=== PATIENT | female | born 1945 | race Caucasian/White ===

== ENCOUNTER 2024-08-22 14:04 | Outpatient (CLI) | payer MEDICARE, OTHER ==
--- NOTE | 2024-08-25 10:13 | CONSULTATION ---
DATE OF CONSULTATION: 08/22/2024 DICTATING PHYSICIAN: Stephanie Beckford M.S., [facility] MODIFIED BARIUM SWALLOW STUDY REPORT REFERRING PHYSICIAN: Jason Redding MD HISTORY OF PRESENT ILLNESS: The patient is an 79-year-old female and consents to this evaluation. The patient's daughter was present for this evaluation. In history obtained from the patient, the patient's daughter and medical records, the patient has been having symptoms of dysphagia including coughing with both solids and liquids almost every time that she eats and drinks. The patient has had a chronic cough since she was a child, but the patient's daughter has noted that over the past couple of years that the cough has gotten worse and seems to occur more at mealtimes. She also notes that the patient has been clearing her throat throughout the day for the past couple of years as well. The patient has a diagnosis of Alzheimer's disease as well as COPD. She notes that she is more sensitive to foods that are spicy or have extra seasoning on them. CURRENT DIET: In terms of caffeine, the patient has 1 cup of coffee daily and 2 cups of tea. She does not utilize tobacco products. She does not consume alcohol. In terms of chocolate, she has very frequently in the form of chocolate ice cream and cookies. In terms of dairy products, the patient has at least 3 times a week in the form of ice cream, milk as a beverage or milk in her coffee. She is on a regular textured and liquid diet with no food avoidances at this time. MEDICATIONS: Albuterol 90 mcg/inhalation aerosol, one inhalation every 4 hours p.r.n., Allertec, Latanoprost ophthalmic 0.005% solution, one drop Ophth daily, pantoprazole 20 mg oral delayed release tablet, one tablet once daily orally in the morning, sertraline 50 mg one tablet p.o. daily. PARAMETERS: The patient is seated in a lateral 90-degree view and administered the usual protocol of thin and nectar thick liquids, puree, and solid consistencies as well as self-regulated boluses of thin liquids from a cup. RESULTS: In the stage of the swallow, oral transit is characterized by mildly reduced lingual strength and mild to moderately reduced tongue-based retraction. There is a mild oral residue on the tongue base following the initial swallow of boluses. The patient did not initiate secondary swallows when they were needed to clear the bolus from the oral cavity. In the pharyngeal stage of the swallow, swallow initiation was delayed with nectar thick liquids residing at the level of the vallecula and thin liquids residing at the level of the piriforms before a swallow was initiated, which indicated deficit with the cranial nerve 9 for triggering the initiation of the swallow reflex. Elevation of the hyothyroid complex was accomplished with full range of motion and PES opening was within functional limits. Anterior movement of the posterior pharyngeal wall is observed. There is a mild pharyngeal residue at the level of the vallecula for puree and solid consistencies and a mild to moderate pharyngeal residue at the level of the vallecula and the piriforms for the liquid boluses. In terms of airway safety, there was no penetration or aspiration noted for any of the bolus sizes or consistencies, but it should be noted that the patient did have 2 coughing episodes immediately after she swallowed a bolus and upon careful review of those 2 episodes, there was no entrance of the bolus into the airway. ANTERIOR, POSTERIOR VIEW: In AP plane, the bolus split symmetrically between the piriform sinuses and there was proximal movement of the bolus to the level of the mid sternum. 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 DIAGNOSES: R13.12 dysphagia, oropharyngeal phase; R13.14 dysphagia, pharyngoesophageal phase; G30.9 Alzheimer's disease. PATIENT EDUCATION: Immediately following modified barium swallow study, the patient and her daughter were able to view the results. The patient and daughter were able to see how the current status of the oral motor and swallowing mechanism decreases her ability to swallow normally. The patient and daughter were educated on recommendation to take smaller bites and sips and to have extra secondary swallows when finishing up a meal to ensure that there was complete bolus clearance from the oral and pharyngeal cavities. The patient and daughter were also educated on a recommendation for speech therapy to strengthen the muscles involved in swallowing and indicated that they would think about it at this time. RECOMMENDATIONS: * It is recommended that the patient utilize swallowing strategies such as limiting distractions, smaller bites and sips, and voluntary secondary swallows. * It is recommended that the patient receive swallowing therapy one time weekly for 12 weeks to improve the strength and range of motion of the oral motor and swallowing musculature to ensure airway safety protection and prevent aspiration. The patient and daughter are going to think about it at this time and call back if they decide to pursue following therapy. LONG-TERM GOALS: The patient will maintain adequate hydration/nutrition with optimum safety and efficiency of swallow function on p.o. intake without overt signs and symptoms of aspiration for the highest possible diet level. PROGNOSIS: Prognosis for this patient is fair based upon family support and level of queuing needed to implement the swallowing strategies. FUNCTIONAL ORAL INTAKE: The FOIS was administered to establish and document a change in the functional eating activities of this patient over time. This is a 7-point scale with 1 indicating no oral intake and totally tube dependent and 7 indicating total oral intake with no restrictions. This patient received a 6, which indicates she has a total oral diet with multiple consistencies without special preparation, but with specific food limitations and precautions. These limitations and precautions being foods that could aggravate the proximal movement of the boluses that were observed in the AP view. G-CODE: [id number]. Thank you very much for asking me to participate in the care of this kind patient. Should you have any questions regarding this evaluation or recommendation, please do not hesitate to contact me at [phone]. During this examination, 4.01 minutes of fluoroscopy time and 15.72 CAK mGy were utilized. Stephanie Beckford M.S., [facility] [facility] TID: [id number] RECEIPT: [id number] NERY BO
== END 2024-08-22 23:59 | disposition home or self-care (01) ==
LOC: RAD 14:04
PROVIDERS: ATTEND Family Medicine
DX: R13.12 Dysphagia, oropharyngeal phase (principal); R13.14 Dysphagia, pharyngoesophageal phase; J44.9 Chronic obstructive pulmonary disease, unspecified; G30.9 Alzheimer's disease, unspecified
CPT/HCPCS: 74230